=== PATIENT | male | born 2000 | race Caucasian/White ===

== ENCOUNTER 2020-06-06 12:44 | Outpatient (CLI) | payer BC ==
[2020-06-07 01:47] LABS: SARS-CoV-2 PCR by NAA Not Detected (NotDetected)
== END 2020-06-06 12:45 | disposition home or self-care (01) ==
LOC: CSHLAB 12:44
PROVIDERS: ATTEND Internal Medicine Gastroenterology
DX: Z20.822 Contact with and (suspected) exposure to COVID-19 (principal); R19.5 Other fecal abnormalities; K62.5 Hemorrhage of anus and rectum
CPT/HCPCS: 87635; U0003; U0005

== ENCOUNTER 2020-06-11 09:51 | Day surgery (SDC) | payer BC ==
[2020-06-10 12:24] VITALS: BMI 33.0
[2020-06-11] MEDS ORDERED: PROPOFOL 40 ML ONE (11:46)
[2020-06-11] MEDS ORDERED: PROPOFOL 20 ML ONE ×2 (12:34→12:43)
== END 2020-06-11 14:20 | disposition home or self-care (01) ==
LOC: CSHSDC 09:51
PROVIDERS: ATTEND Internal Medicine Gastroenterology
DX: K52.9 Noninfective gastroenteritis and colitis, unspecified (principal); K62.5 Hemorrhage of anus and rectum; R19.5 Other fecal abnormalities
CPT/HCPCS: 88305; J2704